=== PATIENT | male | born 1970 | race Caucasian/White ===

== ENCOUNTER 2019-11-16 11:38 | Emergency (ER) | payer SELFPAY ==
[~2019-11-16] VITALS: Ht 185.4 cm; Wt 63.5 kg
[2019-11-16 11:41] VITALS: BP 177/103
== END 2019-11-16 13:45 | disposition home or self-care (01) ==
LOC: ER 11:38
DX: J06.9 Acute upper respiratory infection, unspecified (principal); F17.210 Nicotine dependence, cigarettes, uncomplicated; J44.9 Chronic obstructive pulmonary disease, unspecified; E78.5 Hyperlipidemia, unspecified